=== PATIENT | female | born 1960 | race Caucasian/White ===

== ENCOUNTER 2022-04-27 11:03 | Day surgery (SDC) | payer MEDICARE ==
[2022-04-27] MEDS ORDERED: Acetaminophen 500 MG TAB ONE (11:59)
[2022-04-27] MEDS ORDERED: diphenhydrAMINE 25 MG CAP ONE (12:00)
[2022-04-27 13:19] VITALS: BP 105/50; TEMP 97.9
== END 2022-04-27 13:21 | disposition home or self-care (01) ==
LOC: ONC/OP 11:03
PROVIDERS: ATTEND Internal Medicine Hematology & Oncology
PROC: 30233R1 Transfusion of Nonautologous Platelets into Peripheral Vein, Percutaneous Approach (ICD-10-PCS; principal; 2022-04-27)
DX: D69.6 Thrombocytopenia, unspecified (principal); D64.9 Anemia, unspecified
CPT/HCPCS: 36430; 86850; 86900; 86901; P9035

== ENCOUNTER 2022-10-11 13:26 | Outpatient (CLI) | payer MEDICARE | END 2022-10-11 13:27 | disposition home or self-care (01) | LOC: BICMAMMO 13:26 | PROVIDERS: ATTEND Family Medicine | DX: N63.12 Unspecified lump in the right breast, upper inner quadrant (principal); N60.01 Solitary cyst of right breast | CPT/HCPCS: 76642; 77066; G0279 ==

== ENCOUNTER 2023-06-30 20:23 | Emergency (ER) | payer OTHER | END 2023-06-30 23:46 | disposition home or self-care (01) | LOC: ERS 20:23 | DX: M25.562 Pain in left knee (principal) ==